=== PATIENT | female | born 1950 | race Caucasian/White ===

== ENCOUNTER 2017-07-18 04:16 | Emergency (ER) | payer OTHER ==
[~2017-07-18] VITALS: Ht 157.5 cm; Wt 63.1 kg
[~2017-07-18 04:16] MED LIST: MULTIVITAMINS1 EAC2 PO
[2017-07-18 07:23] VITALS: BP 125/101
== END 2017-07-18 07:20 | disposition home or self-care (01) ==
LOC: EME 04:16
DX: K91.840 Postprocedural hemorrhage of a digestive system organ or structure following a digestive system procedure (principal); Z98.818 Other dental procedure status; E78.5 Hyperlipidemia, unspecified
CPT/HCPCS: 99281; 99283